=== PATIENT | female | born 1980 | race Caucasian/White ===

== ENCOUNTER 2017-04-03 00:15 | Emergency (ER) | payer SELFPAY ==
[2017-04-03 00:15] VITALS: BP 144/86; PULSE 80; RESP 16; TEMP 98.3; O2SAT 100
[~2017-04-03 00:15] MED LIST: CLIN150 PO
== END 2017-04-03 00:50 | disposition left against medical advice (07) ==
LOC: NED 00:15
DX: Z53.21 Procedure and treatment not carried out due to patient leaving prior to being seen by health care provider (principal)
CPT/HCPCS: 99281